=== PATIENT | male | born 1980 | race Hispanic/Latino ===

== ENCOUNTER 2018-06-14 08:28 | Day surgery (SDC) | payer OTHER ==
[2018-06-14] MEDS: LR 1,000 ML IV (09:01)
[2018-06-14] MEDS ORDERED: dexameTHASONE 4 MG/ML 1ML VIAL (J1100) As Ordered (12:04)
[2018-06-14] MEDS ORDERED: ONDANSETRON 4MG/2ML VIAL (J2405) As Ordered ×2 (12:04→14:28)
[2018-06-14] MEDS ORDERED: ROCURONIUM BROMIDE 50 MG/5 ML VIAL As Ordered (12:04)
[2018-06-14] MEDS ORDERED: PROPOFOL 200 MG/20 ML VIAL As Ordered (12:04)
[2018-06-14] MEDS ORDERED: fentaNYL 250 MCG/5 ML INJECTION (J3010) As Ordered (12:04)
[2018-06-14] MEDS ORDERED: MIDAZOLAM INJ 2 MG/2 ML VIAL (J2250) As Ordered (12:04)
[2018-06-14] MEDS ORDERED: LIDOCAINE 2% INJ 100 MG/5 ML SDV (FOR ANES.) As Ordered (12:04)
[2018-06-14] MEDS: METHYLENE BLUE 0.5% (5MG/ML) 10 ML AMP (PROVAYBLUE)(Q9968 PER 1MG) As Ordered (13:30)
[2018-06-14] MEDS: LIDOCAINE W/EPINEPHRINE 1% 20ML VIAL As Ordered (13:30)
[2018-06-14] MEDS: EPINEPHrine 1MG/ML INJ 30ML MD-VIAL As Ordered (13:30)
[2018-06-14] MEDS ORDERED: GLYCOPYRROLATE INJ 0.2 MG/ML 2 ML VIAL As Ordered ×2 (13:34→13:47)
[2018-06-14] MEDS ORDERED: NEOSTIGMINE 10 MG/10 ML VIAL (J2710) As Ordered (13:34)
[2018-06-14] MEDS ORDERED: SUGAMMADEX SODIUM 500 MG/5 ML VIAL (BRIDION) As Ordered (13:48)
[2018-06-14] MEDS ORDERED: LR 1,000 ML IV ×2 (14:15→14:45)
[2018-06-14] MEDS ORDERED: PERCOCET 5MG/325MG TAB As Ordered (14:27)
[2018-06-14] MEDS ORDERED: fentaNYL 100 MCG/2 ML INJECTION (J3010) As Ordered (14:27)
[2018-06-14] MEDS ORDERED: ACETAMINOPH W/CODEINE #3 TAB UD PO (14:30)
[2018-06-14] MEDS: PERCOCET 5MG/325MG TAB PO (14:33)
[2018-06-14] MEDS: fentaNYL 100 MCG/2 ML INJECTION (J3010) IV ×4 (14:34→14:52)
[2018-06-14] MEDS: ONDANSETRON 4MG/2ML VIAL (J2405) IV (14:35)
[2018-06-14] MEDS: METOCLOPRAMIDE INJ 10MG/2ML VIAL (J2765) IV (14:45)
== END 2018-06-14 15:25 | disposition home or self-care (01) ==
LOC: M SDC 08:28
DX: J34.2 Deviated nasal septum (principal); J31.0 Chronic rhinitis
CPT/HCPCS: 30520

== ENCOUNTER 2019-02-01 22:56 | Emergency (ER) | payer OTHER ==
[~2019-02-01] VITALS: Ht 167.6 cm; Wt 84.1 kg
--- NOTE | 2019-02-01 23:50 | REPVR ---
EXAM: US Scrotum EXAM DATE/TIME: 02/01/2019 11:22 PM CLINICAL HISTORY: 39 years old, male; Scrotum pain; Prior surgery; Surgery date: 6+ months; Surgery type: Vastecomy bilaterally 2015; Additional info: Testicular pain and swelling TECHNIQUE: Imaging protocol: Real-time ultrasound of the scrotum and contents with color Doppler and image documentation. COMPARISON: No relevant prior studies available. FINDINGS: Right Testicle: The right testis is homogeneous and measures 4.7 x 2.3 x 3.3 cm and demonstrates normal blood flow. The resistive index is 0.53. There is a minimal calcification. Left Testicle: The left testis measures 4.1 x 2.2 x 2.9 cm with normal blood flow. The resistive index is 0.60. Epididymides: The right epididymal head measures 13 mm. The left epididymal head is 12 mm. Scrotum: Mild left varicocele is noted. IMPRESSION: 1. Mild left varicocele. 2. Otherwise negative testicular sonogram with bilateral blood flow. Electronically signed by: Sy Taylor On 02/01/2019 23:50:57 PM
[2019-02-02 00:50] VITALS: BP 143/90
== END 2019-02-02 00:51 | disposition home or self-care (01) ==
LOC: M ED 22:56
DX: I86.1 Scrotal varices (principal)